=== PATIENT | male | born 1960 | race Two or more races ===

== ENCOUNTER 2022-07-18 07:00 | Day surgery (SDC) | payer OTHER ==
[~2022-07-18] VITALS: Ht 167.6 cm; Wt 69.9 kg
[~2022-07-18 07:00] MED LIST: ATORVASTATIN CA40 MG PO
== END 2022-07-18 16:50 | disposition home or self-care (01) ==
LOC: CIR.AMB 07:00
PROVIDERS: ATTEND Orthopaedic Surgery
DX: M75.122 Complete rotator cuff tear or rupture of left shoulder, not specified as traumatic (principal); M75.22 Bicipital tendinitis, left shoulder; M24.112 Other articular cartilage disorders, left shoulder; Z20.822 Contact with and (suspected) exposure to COVID-19; Z87.891 Personal history of nicotine dependence